=== PATIENT | female | born 1940 | race Caucasian/White ===

== ENCOUNTER → 2017-02-10 | Outpatient (CLI) | payer OTHER | END | disposition home or self-care (01) | LOC: RD 12:34 | DX: R91.8 Other nonspecific abnormal finding of lung field (principal) ==

== ENCOUNTER → 2017-10-04 | Outpatient (CLI) | payer OTHER ==
[2017-10-04 12:29] LABS: ALKALINE PHOSPHATASE 103 U/L (46-116); ALT/SGPT 36 U/L (14-59); AST/SGOT 45 U/L (15-37); BILIRUBIN TOTAL 1.73 mg/dL (0.20-1.00); CALCIUM 8.6 mg/dL (8.5-10.1); CHLORIDE SERUM 106 mmol/L (98-107); CREATININE SERUM 0.7 mg/dL (0.6-1.0); GLUCOSE SERUM 153 mg/dL (74-106); POTASSIUM SERUM 4.5 mmol/L (3.5-5.1); SODIUM SERUM 138 mmol/L (136-145); TOTAL PROTEIN, SERUM 6.8 g/dL (6.4-8.2)
[2017-10-04 12:54] LABS: PLATELET COUNT 56 x10^3mcL (130-400); RED CELL DISTRIBUTION WIDTH 15.9 % (11.5-14.5)
[2017-10-04 13:58] LABS: ATYPICAL LYMPH 0 %; BAND NEUTROPHIL 0 % (0-10); MONOCYTE 12 % (0-7); SEGMENTED NEUTROPHILS 48 % (37-75)
[2017-10-04 13:59] LABS: BASOPHIL 0 % (0-2); rbc morphology (normal/abnorm) ABNORMAL (NORMAL)
[2017-10-04 14:00] LABS: PLATELET MORPHOLOGY D
== END | disposition home or self-care (01) ==
LOC: LB 11:41
DX: D64.9 Anemia, unspecified (principal)

== ENCOUNTER → 2017-11-25 | Outpatient (CLI) | payer OTHER ==
[2017-11-25 09:14] LABS: ALKALINE PHOSPHATASE 93 U/L (46-116); ALT/SGPT 34 U/L (14-59); AST/SGOT 31 U/L (15-37); BILIRUBIN TOTAL 1.1 mg/dL (0.20-1.00); CALCIUM 8.9 mg/dL (8.5-10.1); CARBON DIOXIDE 28.5 mmol/L (21-32); CHLORIDE SERUM 107 mmol/L (98-107); CREATININE SERUM 0.7 mg/dL (0.6-1.0); GLUCOSE SERUM 184 mg/dL (74-106); POTASSIUM SERUM 4.2 mmol/L (3.5-5.1); SODIUM SERUM 142 mmol/L (136-145); TOTAL PROTEIN, SERUM 6.6 g/dL (6.4-8.2)
[2017-11-25 10:35] LABS: PLATELET COUNT 68 x10^3mcL (130-400); RED CELL DISTRIBUTION WIDTH 15.2 % (11.5-14.5)
[2017-11-25 11:14] LABS: MONOCYTE 10 % (0-7); SEGMENTED NEUTROPHILS 57 % (37-75)
[2017-11-25 11:16] LABS: rbc morphology (normal/abnorm) NORMAL (NORMAL)
== END | disposition home or self-care (01) ==
LOC: LB 08:14
DX: D64.9 Anemia, unspecified (principal)

== ENCOUNTER → 2018-02-16 | Outpatient (CLI) | payer OTHER ==
[2018-02-16 09:33] LABS: BASOPHIL % 4.6 % (0-2); PLATELET COUNT 72 x10^3mcL (130-400); RED CELL DISTRIBUTION WIDTH 14.8 % (11.5-14.5)
[2018-02-16 10:03] LABS: ALKALINE PHOSPHATASE 78 U/L (46-116); ALT/SGPT 36 U/L (14-59); AST/SGOT 35 U/L (15-37); BILIRUBIN TOTAL 1.6 mg/dL (0.20-1.00); CALCIUM 8.8 mg/dL (8.5-10.1); CHLORIDE SERUM 105 mmol/L (98-107); CREATININE SERUM 0.7 mg/dL (0.6-1.0); GLUCOSE SERUM 146 mg/dL (74-106); POTASSIUM SERUM 4.4 mmol/L (3.5-5.1); SODIUM SERUM 140 mmol/L (136-145); TOTAL PROTEIN, SERUM 6.2 g/dL (6.4-8.2)
[2018-02-16 10:06] LABS: ALBUMIN 2.8 g/dL (3.4-5.0)
== END | disposition home or self-care (01) ==
LOC: LB 08:57
DX: D64.9 Anemia, unspecified (principal)

== ENCOUNTER → 2018-02-22 | Outpatient (CLI) | payer OTHER | END | disposition home or self-care (01) | LOC: RD 10:32 | DX: M17.9 Osteoarthritis of knee, unspecified (principal) ==

== ENCOUNTER → 2018-03-08 | Outpatient (CLI) | payer OTHER | END | disposition home or self-care (01) | LOC: RD 11:20 | DX: M54.9 Dorsalgia, unspecified (principal) ==

== ENCOUNTER → 2018-11-17 | Outpatient (CLI) | payer OTHER ==
[2018-11-17 10:44] LABS: IRON 133 ug/dL (50-170)
[2018-11-17 10:48] LABS: BASOPHIL % 1.2 % (0-2)
[2018-11-17 10:51] LABS: TOTAL IRON BINDING CAPACITY 210 ug/dL (250-450)
[2018-11-17 10:53] LABS: ALKALINE PHOSPHATASE 82 U/L (46-116); ALT/SGPT 27 U/L (14-59); AST/SGOT 36 U/L (15-37); BILIRUBIN TOTAL 1.8 mg/dL (0.20-1.00); CARBON DIOXIDE 24.7 mmol/L (21-32); CHLORIDE SERUM 106 mmol/L (98-107); CREATININE SERUM 0.7 mg/dL (0.6-1.0); GLUCOSE SERUM 192 mg/dL (74-106); POTASSIUM SERUM 4.4 mmol/L (3.5-5.1); SODIUM SERUM 139 mmol/L (136-145); TOTAL PROTEIN, SERUM 6.5 g/dL (6.4-8.2)
[2018-11-17 10:55] LABS: ALBUMIN 2.9 g/dL (3.4-5.0)
[2018-11-17 11:07] LABS: RED CELL DISTRIBUTION WIDTH 15.2 % (11.5-14.5)
[2018-11-17 12:27] LABS: PLATELET COUNT 50 x10^3mcL (130-400)
== END | disposition home or self-care (01) ==
LOC: LB 09:12
DX: D46.4 Refractory anemia, unspecified (principal); E03.9 Hypothyroidism, unspecified

== ENCOUNTER → 2018-11-29 | Outpatient (CLI) | payer OTHER | END | disposition home or self-care (01) | LOC: LB 09:23 | DX: E11.9 Type 2 diabetes mellitus without complications (principal); I10 Essential (primary) hypertension ==

== ENCOUNTER → 2019-02-06 | Outpatient (CLI) | payer OTHER ==
[2019-02-06 10:57] LABS: ALKALINE PHOSPHATASE 85 U/L (46-116); ALT/SGPT 33 U/L (14-59); AST/SGOT 39 U/L (15-37); BILIRUBIN TOTAL 1.4 mg/dL (0.20-1.00); CALCIUM 8.7 mg/dL (8.5-10.1); CARBON DIOXIDE 30.5 mmol/L (21-32); CHLORIDE SERUM 105 mmol/L (98-107); CREATININE SERUM 0.7 mg/dL (0.6-1.0); GLUCOSE SERUM 210 mg/dL (74-106); IRON 111 ug/dL (50-170); POTASSIUM SERUM 4.6 mmol/L (3.5-5.1); SODIUM SERUM 138 mmol/L (136-145); TOTAL IRON BINDING CAPACITY 252 ug/dL (250-450); TOTAL PROTEIN, SERUM 6.7 g/dL (6.4-8.2)
[2019-02-06 11:06] LABS: ALBUMIN 3.1 g/dL (3.4-5.0)
== END | disposition home or self-care (01) ==
LOC: LB 09:37
PROVIDERS: Family Medicine
DX: D64.9 Anemia, unspecified (principal)

== ENCOUNTER → 2019-08-08 | Outpatient (CLI) | payer OTHER ==
[2019-08-08 09:24] LABS: ALKALINE PHOSPHATASE 85 U/L (46-116); ALT/SGPT 28 U/L (14-59); AST/SGOT 38 U/L (15-37); BILIRUBIN TOTAL 1.31 mg/dL (0.20-1.00); CALCIUM 8.4 mg/dL (8.5-10.1); CARBON DIOXIDE 28.2 mmol/L (21-32); CHLORIDE SERUM 106 mmol/L (98-107); CREATININE SERUM 0.5 mg/dL (0.6-1.0); GLUCOSE SERUM 129 mg/dL (74-106); POTASSIUM SERUM 4.3 mmol/L (3.5-5.1); SODIUM SERUM 140 mmol/L (136-145); TOTAL PROTEIN, SERUM 6.6 g/dL (6.4-8.2)
[2019-08-08 12:19] LABS: PLATELET COUNT 59 x10^3mcL (130-400); RED CELL DISTRIBUTION WIDTH 14.4 % (11.5-14.5)
[2019-08-08 12:31] LABS: BAND NEUTROPHIL 2 % (0-10); BASOPHIL 0 % (0-2); MONOCYTE 8 % (0-7); SEGMENTED NEUTROPHILS 48 % (37-75)
[2019-08-08 12:32] LABS: PLATELET MORPHOLOGY PLATELETS DECREASED; rbc morphology (normal/abnorm) ABNORMAL (NORMAL)
== END | disposition home or self-care (01) ==
LOC: LB 08:18
DX: D64.9 Anemia, unspecified (principal)

== ENCOUNTER → 2019-10-24 | Outpatient (CLI) | payer OTHER ==
[2019-10-24 13:33] LABS: BASOPHIL % 0.6 % (0-2)
[2019-10-24 13:41] LABS: PLATELET COUNT 67 x10^3mcL (130-400); RED CELL DISTRIBUTION WIDTH 14.8 % (11.5-14.5)
[2019-10-24 13:44] LABS: ALKALINE PHOSPHATASE 98 U/L (46-116); ALT/SGPT 42 U/L (14-59); AST/SGOT 47 U/L (15-37); BILIRUBIN TOTAL 1.6 mg/dL (0.20-1.00); CALCIUM 8.7 mg/dL (8.5-10.1); CARBON DIOXIDE 25.4 mmol/L (21-32); CHLORIDE SERUM 107 mmol/L (98-107); CREATININE SERUM 0.6 mg/dL (0.6-1.0); GLUCOSE SERUM 89 mg/dL (74-106); POTASSIUM SERUM 4.3 mmol/L (3.5-5.1); SODIUM SERUM 142 mmol/L (136-145)
[2019-10-24 13:52] LABS: ALBUMIN 3.1 g/dL (3.4-5.0)
== END | disposition home or self-care (01) ==
LOC: RD 12:11
DX: D64.9 Anemia, unspecified (principal); M25.562 Pain in left knee; M25.561 Pain in right knee